=== PATIENT | male | born 1950 | race Two or more races ===

== ENCOUNTER → 2021-11-03 14:13 | Outpatient (CLI) | payer OTHER | END | disposition home or self-care (01) | LOC: LAB 14:13 | PROVIDERS: ATTEND Radiology Diagnostic Radiology | DX: C22.8 Malignant neoplasm of liver, primary, unspecified as to type (principal) ==

== ENCOUNTER 2021-12-01 07:31 | Outpatient (CLI) | payer OTHER | END 2021-12-01 07:42 | disposition home or self-care (01) | LOC: TOM 07:31 | PROVIDERS: ATTEND Specialist | DX: J45.998 Other asthma (principal); C22.8 Malignant neoplasm of liver, primary, unspecified as to type ==

== ENCOUNTER 2022-02-24 07:37 | Outpatient (CLI) | payer OTHER | END 2022-02-24 07:38 | disposition home or self-care (01) | LOC: NUCLEAR 07:37 | PROVIDERS: ATTEND Internal Medicine Cardiovascular Disease | DX: I25.10 Atherosclerotic heart disease of native coronary artery without angina pectoris (principal) ==

== ENCOUNTER 2022-02-26 07:24 | Outpatient (CLI) | payer OTHER | END 2022-02-26 07:25 | disposition home or self-care (01) | LOC: NUCLEAR 07:24 | PROVIDERS: ATTEND Internal Medicine | DX: I25.10 Atherosclerotic heart disease of native coronary artery without angina pectoris (principal) | CPT/HCPCS: 78452; 93017; A9500 ==

== ENCOUNTER → 2024-01-12 10:40 | Outpatient (CLI) | payer OTHER | END | disposition home or self-care (01) | LOC: NUCLEAR 10:40 | PROVIDERS: ATTEND Internal Medicine | DX: I67.9 Cerebrovascular disease, unspecified (principal) ==